=== PATIENT | female | born 1960 | race Caucasian/White ===

== ENCOUNTER → 2019-10-23 | Outpatient (CLI) | payer BC, OTHER | LOC: NUC 09:25 | DX: Z13.820 Encounter for screening for osteoporosis (principal); Z23 Encounter for immunization; Z78.0 Asymptomatic menopausal state ==

== ENCOUNTER → 2019-12-10 | Outpatient (CLI) | payer BC, OTHER | LOC: RAD 14:10 | DX: M77.8 Other enthesopathies, not elsewhere classified (principal) ==

== ENCOUNTER → 2020-10-03 | Outpatient (CLI) | payer BC, OTHER | LOC: RAD 15:44 | PROVIDERS: ATTEND Family Medicine | DX: M79.89 Other specified soft tissue disorders (principal) ==

== ENCOUNTER → 2021-11-07 | Outpatient (CLI) | payer BC, OTHER | LOC: NUC 11-06 14:40 | PROVIDERS: ATTEND Family Medicine | DX: M85.88 Other specified disorders of bone density and structure, other site (principal) ==